=== PATIENT | male | born 1995 | race African-American/Black ===

== ENCOUNTER 2023-11-24 14:12 | Emergency (ER) | payer BC, SELFPAY ==
[2023-11-24] VITALS (15 sets, daily range): BP systolic 114–160; BP diastolic 71–100; PULSE 68–97; RESP 15–30; TEMP 36.4; O2SAT 90–100
--- NOTE | 2023-11-24 14:25 | ECG_ITS ---
Measurements Intervals [place] Rate: 74 P: 37 MS: 185 QRS: 34 QRSD: 94 T: 31 QT: 342 QTc: 381 Interpretive Statements SINUS RHYTHM MINIMAL Q WAVES- INFERIOR LEADS BASELINE ARTIFACT- I, II, V1 BORDERLINE ECG COMPARED TO ECG 06/09/2019 18:31:49 NO SIGNIFICANT CHANGES Electronically Signed On 11-24-2023 14:37:11 CDT by Shyam Rivero D.O.
[2023-11-24 14:51] LABS: Basophils Percent Auto 0.5 % (0.2-1.2); Eosinophils Absolute Auto 0.2 K/mm3 (0-0.3); Eosinophils Percent Auto 1.7 % (0-4.4); Hematocrit 45.1 % (42.0-52.0); Hemoglobin 15.3 g/dL (14.0-18.0); Immature Granulocyte Absolute 0.02 K/mm3 (0.00-0.031); Immature Granulocyte Percent A 0.2 % (0-0.5); Lymphocytes Absolute Auto 1.89 K/mm3 (0.9-3.2); Lymphocytes Percent Auto 21.8 % (18.3-44.2); Mean Corpuscular HGB Conc 33.9 g/dl (32-36); Mean Corpuscular Volume 85.6 fl (80-100); Mean Platelet Volume 11.7 fl (7.4-10.4); Monocytes Absolute Auto 0.5 K/mm3 (0.1-0.6); Monocytes Percent Auto 5.2 % (2.6-8.5); Neutrophils Absolute Auto 6.1 K/mm3 (1.3-6.7); Neutrophils Percent Auto 70.6 % (45.5-73.1); Platelet Count Result 244 k/mm3 (150-375); Red Blood Count 5.27 M/mm3 (4.6-6.20); Red Cell Distribution Width 12.3 % (11.5-14.5); White Blood Count 8.7 K/mm3 (4.5-10.0)
[2023-11-24 14:56] LABS: Alanine Aminotransferase 43 U/L (6-50); Albumin Level 4.3 g/dL (3.5-5.1); Alkaline Phosphatase 68 U/L (38-126); Anion Gap 6 mmol/L (8-16); Aspartate Amino Transferase 33 U/L (17-59); Bilirubin,Total 0.5 mg/dL (0.2-1.3); Blood Urea Nitrogen 17 mg/dL (9-20); Calcium 9.2 mg/dL (8.4-10.2); Carbon Dioxide 22 mmol/L (22-30); Chloride 108 mmol/L (98-107); Estimated CRCL calculation 144 ml/min; Estimated Glomerular Filt Rate > 60; Glucose 95 mg/dL (65-110); Potassium 3.7 mmol/L (3.4-5.0); Sodium 136 mmol/L (137-145)
--- NOTE | 2023-11-24 15:10 | ED.HA ---
HPI - Headache General Chief Complaint: Dizziness Stated Complaint: int. 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 Related Data Allergies Allergy/AdvReac Type Severity Reaction Status Date / Time No Known Allergies Allergy Verified 11/24/23 14:36 Review of Systems Review of Systems: CONST: No fever. HEENT: No sore throat C/V: No chest pain RESP: No cough GI: No abdominal pain : No dysuria. M/S: No joint pain. SKIN: No rash. NEURO: Headache PSYCH: [No depression] Exam Narrative: EXAMINATION OF ORGAN SYSTEMS/BODY AREAS: Constitutional: Vital signs per nursing GENERAL:[No acute distress, non-toxic appearing.] HEAD: Normal with no signs of head trauma. EYES: EOMI, conjunctiva normal ENT: Hearing grossly intact LUNGS: Nonlabored breathing. HEART: [Regular rate and rhythm] ABD: [Soft], [nontender to palpation] EXT: Normal range of motion SKIN: [No rashes or lesions.] NEURO: [Alert and oriented x 3. No gross focal sensory or strength deficits.] Normal clear speech, normal steady gait. PSYCH: Normal affect Course Vital Signs Vital signs: Vital Signs Blood Pressure 151/90 H 11/24/23 14:19 Pulse Oximetry 98 11/24/23 14:19 Temperature 97.6 F 11/24/23 14:24 Pulse Rate 68 11/24/23 16:05 Respiratory Rate 23 H 11/24/23 16:05 Blood Pressure 114/74 11/24/23 16:05 Pulse Oximetry 100 11/24/23 16:05 Oxygen Delivery Room Air 11/24/23 14:24 MDM - Headache MDM Narrative Medical decision making narrative: 28-year-old male with history of migraines presents to the emergency department for headache. Patient is hemodynamically stable. No focal neurological or cranial nerve deficits on exam. No meningeal signs. The headache was gradual in onset, it is not exertional and does not appear consistent with subarachnoid hemorrhage or intracranial bleeding. No trauma. They feel just like his usual migraines. Patient is given headache cocktail including Reglan, Benadryl, Toradol. On reevaluation, the patient feels significantly better with the headache resolved. No neurological deficits. Patient is comfortable going home for outpatient follow-up with neurology and provided with strict return precautions, especially for worsening headaches, neck pain/stiffness, fever or weakness, numbness/tingling or persistent vomiting. He is very well-appearing here at time of discharge. He has a neurologist I have asked him to follow up with. Lab Data 11/24/23 14:38 11/24/23 14:38 Labs: Lab Results 11/24/23 Range/Units 14:38 WBC 8.7 (4.5-10.0) K/mm3 RBC 5.27 (4.6-6.20) M/mm3 Hgb 15.3 (14.0-18.0) g/dL Hct 45.1 (42.0-52.0) % MCV 85.6 (80-100) fl MCH 29.0 (26-34) pg MCHC 33.9 (32-36) g/dl RDW 12.3 (11.5-14.5) % Plt Count 244 (150-375) k/mm3 MPV 11.7 H (7.4-10.4) fl Immature Gran % (Auto) 0.2 (0-0.5) % Neut % (Auto) 70.6 (45.5-73.1) % Lymph % (Auto) 21.8 (18.3-44.2) % Clare % (Auto) 5.2 (2.6-8.5) % Eos % (Auto) 1.7 (0-4.4) % Baso % (Auto) 0.5 (0.2-1.2) % Lymph # (Auto) 1.89 (0.9-3.2) K/mm3 Clare # (Auto) 0.5 (0.1-0.6) K/mm3 Eos # (Auto) 0.2 (0-0.3) K/mm3 Baso # (Auto) 0.0 (0.0-0.1) K/mm3 Abs Immat Gran (auto) 0.02 (0.00-0.031) K/mm3 Absolute Neuts (auto) 6.1 (1.3-6.7) K/mm3 Absolute Nucleated RBC 0.000 (0.0-0.012) K/mm3 Nucleated RBC % 0.0 (0.0-0.2) % Sodium 136 L (137-145) mmol/L Potassium 3.7 (3.4-5.0) mmol/L Chloride 108 H (98-107) mmol/L Carbon Dioxide 22 (22-30) mmol/L Anion Gap 6 L (8-16) mmol/L BUN 17 (9-20) mg/dL Creatinine 1.00 (0.7-1.3)
[2023-11-24] MEDS: METOCLOPRAMIDE HCL INJ 10 MG/2 ML VIAL IV PUSH (15:38)
[2023-11-24] MEDS: KETOROLAC 15 MG/ML VIAL (*BKC) IV PUSH (15:41)
[2023-11-24] MEDS: diphenhydrAMINE HCl INJ 50 MG/ML VIAL 25 MG IV PUSH (15:43)
== END 2023-11-24 16:05 | disposition home or self-care (01) ==
PROVIDERS: Emergency Medicine; Emergency Provider Emergency Medicine; Referring Provider Family Medicine
DX: G43.909 Migraine, unspecified, not intractable, without status migrainosus (principal)
CPT/HCPCS: 36415; 80053; 85025; 93005; 96374; 96375; 99284; J1200; J1885; J2765

== ENCOUNTER 2023-12-16 12:29 | Emergency (ER) | payer OTHER, BC, SELFPAY ==
--- NOTE | ~2023-12-16 | XR_ITS ---
XR chest 1V portable DATE: 12/16/2023 14:02 INDICATION: Palpitation, shortness of breath. TECHNIQUE: Portable AP upright view on 01/05/2024 at 1356 hours COMPARISON: 06/09/2019 2 view chest FINDINGS: Electronic device overlies the central chest. Normal heart size. No hilar or mediastinal enlargement. No pulmonary infiltrate or consolidation, pulmonary vascular congestion or pleural effu candelaria or pneumothorax. IMPRESSION: No active cardiopulmonary disease Reviewed, dictated and finalized at location B.
--- NOTE | 2023-12-16 12:34 | ECG_ITS ---
Measurements Intervals [place] Rate: 100 P: 34 SD: 163 QRS: 42 QRSD: 91 T: 32 QT: 322 QTc: 415 Interpretive Statements SINUS TACHYCARDIA COMPARED TO PRIOR EKG 11-24-2023 14:31: SINUS TACHYCARDIA NOW PRESENT Electronically Signed On 12-16-2023 12:58:00 CDT by Ifeoma Joyner M.D.
[2023-12-16 12:35] VITALS: BP 142/79; RESP 23; TEMP 36.7; O2SAT 100
--- NOTE | 2023-12-16 12:41 | ED.GENADULT ---
HPI - General Adult General Chief complaint: Anxiety Stated complaint: dizzy/heart racing while at work Time Seen by Provider: 12/16/23 12:39 Source: patient Mode of arrival: EMS Limitations: no limitations History of Present Illness HPI narrative: Patient presents with report of dizziness and heart racing while work. He started hyperventilating. He felt like his vision was narrowing in with blackness at the periphery. He felt he might pass out so he lowered himself to the ground. The episode lasted approximately 10 minutes and resolved. He has a history of anxiety and panic attacks and believes that's what this was. he has been a new medication, Buspar for the past week. He experienced perioral numbness and tingling during the episode as well as tingling in his feet. He states the sensation in his feet is still present. He is also on lorazepam 0.5 mg p.r.n. but took his last dose yesterday. He is currently undergoing a Cardiac workup for these episodes and an event monitor was just placed today. He did signal with the device when he was experiencing symptoms. Patient has a PCP, Ryanne Mccord. she prescribed him albuterol inhaler for when he has difficulty breathing during these episodes. He denies any underlying respiratory conditions such as asthma. 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 HEAD: Normocephalic, atraumatic. EYES: Non injected, non icteric ENT: Nares clear, no rhinorrhea or epistaxis. NECK: Supple. CHEST: speaking full sentences. No respiratory distress. HEART: Regular rate and rhythm. Event monitor in place on chest. ABDOMEN: obese, Soft, nondistended. EXTREMITIES: Normal range of motion in all extremities. No edema. SKIN: Warm, dry, no rash. NEURO: No focal deficits. Alert and oriented x3. PSYCH: Normal mood and affect. Pleasant, conversant, engaged in health Course Vital Signs Vital signs: Vital Signs Temperature 98.0 F 12/16/23 12:35 Respiratory Rate 23 H 12/16/23 12:35 Blood Pressure 142/79 H 12/16/23 12:35 Pulse Oximetry 100 12/16/23 12:35 Oxygen Delivery Room Air 12/16/23 12:35 Temperature 98.0 F 12/16/23 14:07 Pulse Rate 85 12/16/23 14:07 Respiratory Rate 16 12/16/23 14:07 Blood Pressure 118/74 12/16/23 14:07 Pulse Oximetry 100 12/16/23 14:07 Oxygen Delivery Room Air 12/16/23 12:35 Medical Decision Making MDM Narrative Medical decision making narrative: Patient presents with report of dizziness and heart racing while work. He started hyperventilating. He felt like his vision was narrowing in with blackness at the periphery. He felt he might pass out so he lowered himself to the ground. The episode lasted approximately 10 minutes and resolved. He has a history of anxiety and panic attacks and believes that's what this was. he did experience perioral numbness and tingling during the incident which resolved. He also experienced numbness and tingling in his bilateral legs which he states persists. In the emergency department he is afebrile with vital signs notable for initially tachypnea and hypertension and a borderline tachycardic heart rate on the EKG obtained immediately upon arrival but with subsequent normalization of HR. I do strongly suspect that this was a panic attack based on patient's description of symptoms, wi
[2023-12-16 13:15] VITALS: BP 125/74; PULSE 85; RESP 16; O2SAT 100
[2023-12-16 13:51] VITALS: BP 138/84; PULSE 87; RESP 16; O2SAT 97
[2023-12-16 14:06] LABS: Alanine Aminotransferase 28 U/L (6-50); Albumin Level 4.5 g/dL (3.5-5.1); Alkaline Phosphatase 63 U/L (38-126); Anion Gap 8 mmol/L (4-12); Aspartate Amino Transferase 24 U/L (17-59); Bilirubin,Total 0.4 mg/dL (0.2-1.3); Blood Urea Nitrogen 15 mg/dL (9-20); Calcium 9.5 mg/dL (8.4-10.2); Carbon Dioxide 22 mmol/L (22-30); Chloride 107 mmol/L (98-107); Estimated CRCL calculation 142 ml/min; Estimated Glomerular Filt Rate > 60; Glucose 102 mg/dL (65-110); Magnesium 1.8 mg/dL (1.6-2.3); Potassium 3.6 mmol/L (3.4-5.0); Sodium 137 mmol/L (137-145)
[2023-12-16 14:07] VITALS: BP 118/74; PULSE 85; RESP 16; TEMP 36.7; O2SAT 100
== END 2023-12-16 14:22 | disposition home or self-care (01) ==
PROVIDERS: Emergency Provider Student in an Organized Health Care Education/Training Program
DX: F41.0 Panic disorder [episodic paroxysmal anxiety] (principal); R00.0 Tachycardia, unspecified
CPT/HCPCS: 36415; 71045; 80053; 83735; 93005; 99283